=== PATIENT | male | born 1985 | race Caucasian/White ===

== ENCOUNTER 2019-10-10 22:17 | Emergency (ER) | payer OTHER ==
[~2019-10-10] VITALS: Ht 182.9 cm; Wt 86.4 kg
--- NOTE | 2019-10-10 22:48 | NUR ---
Care assumed of pt. C/O R thumb pain with swelling noted. States was squeezing a pillow really hard last night. Denies other injury. Swelling and bruising to R thumb and palm area. No s/s of acute distress. Call light in reach.
--- NOTE | 2019-10-10 23:15 | NUR ---
Pt ambulated to xray
--- NOTE | 2019-10-10 23:50 | NUR ---
EMT at bedside for splint.
[2019-10-11 00:34] VITALS: BP 105/65
== END 2019-10-11 00:36 | disposition home or self-care (01) ==
LOC: EDBD 22:17 → ED 23:17
DX: S62.511A Displaced fracture of proximal phalanx of right thumb, initial encounter for closed fracture (principal); Z87.891 Personal history of nicotine dependence; X50.1XXA Overexertion from prolonged static or awkward postures, initial encounter; Y93.89 Activity, other specified; Y92.009 Unspecified place in unspecified non-institutional (private) residence as the place of occurrence of the external cause; Y99.8 Other external cause status
CPT/HCPCS: 29125; 99283